=== PATIENT | male | born 1950 | race Caucasian/White ===

== ENCOUNTER 2020-07-11 08:00 | Inpatient (IN) ==
--- NOTE | 2020-07-11 08:17 | Emergency Department Note ---
Impression & Plan Atrial fibrillation with RVR ED Provider Note NAME: GUILLERMO PARR AGE: 69 SEX: M : 1950 ARRIVES VIA: Walk-In INFORMANT: Patient, ED PROVIDER(S): Esequiel Trujillo MD Chief Complaint: Irregular heartbeat HPI: Patient does presents from the surgery center after completing an EKG prior to undergoing cataract surgery where was noted as the patient was in A. fib with RVR. The patient denies any alcohol tobacco or drug use. The patient denies any stimulant or supplement use. The patient denies any prior history of heart or lung disease. Patient may have a history of untreated hyperlipidemia. Patient does take baby aspirin preventatively. No known medical problems. Patient denies any recent stress. Patient states that his appetite is appropriate no vomiting or diarrhea. Patient denies chest pain shortness of breath fatigue or poor appetite. The patient denies any infectious symptoms. ROS: See HPI for pertinent positives and negatives. A total of 10 systems were reviewed and otherwise negative. Past medical history: See below Surgical history: See below Social history: See below Physical Exam: GENERAL: Wearing a mask. NAD, non-toxic. EYE EXAM: Normal conjunctiva. PERRL, no anisocoria and EOM's grossly intact w/o pain. NECK: Supple, no nuchal rigidity, no adenopathy, non-tender. No signs of meningismus. LUNGS: Clear to auscultation. Normal chest wall mechanics. HEART: Irregularly irregular, no MRG. ABDOMEN: Abdomen soft, non-tender, normo-active bowel sounds, no masses, no rebound or guarding. BACK: No CVA TTP. SKIN: No rashes and no bruising. UPPER EXTREMITIES: Upper extremities are grossly normal. LOWER EXTREMITIES: Grossly normal, no edema. NEURO EXAM: A&O x3, cranial nerves II-XII grossly intact, normal speech, moves all 4 extremities on command w/o issue. Differential diagnoses: Premature contractions, electrolyte abnormality, cardiac dysrhythmia, thyroid dysfunction, pulmonary embolism, infection, gastrointestinal, as well as other pathologies. Course: Patient was seen and evaluated the bedside. Full history physical exam was performed. EKG: Indication: Irregular heartbeat A. fib with RVR, rate of 111, normal QRS and QT, PVC noted. Imaging Studies: Radiology results as stated below per my review in the radiologist's interpretation: XR chest 1V portable HISTORY: 69 years-old Male a fib acute atypical chest pain with atrial fibrillation COMPARISON: None TECHNIQUE: Portable AP view of the chest FINDINGS: Cardiac silhouette is moderately enlarged. No pneumothorax, pleural effusion, airspace consolidation or overt pulmonary edema. Degenerative changes of the shoulders and spine. IMPRESSION: Cardiomegaly without acute process. ACT 112: Negative or not required by law. The above report was generated using voice recognition software. It may contain grammatical, syntax or spelling errors. Electronically signed by: Jas Kramer M.D. 07/11/2020 8:39 AM Dictated: 07/11/20837Transcribed: 07/11/20837 Cardiac monitoring: An order was placed for continuous cardiac monitoring. The monitor shows a rate of 95 with irregularly irregular rhythm. MDM: Patient did present with concern for A. fib with RVR referred as an outpatient. [id number] likely 2. Heparin anticoagulation was started. I did speak with the on-call hospitalist and the patient was admitted to the medicine service. Blood work fairly unremarkable chest x-ray with cardiomegaly and mildly low phosphorus which was ordered for replacement. The patient was admitted to [facility] under Dr. Ansari. Critical Care: I have personally spent 47 minutes of critical care time in direct management of this patient. This includes bedside care, interpretation of diagnostic studies, and testing, discussion with consultants, patient, and family members, and other require inpatient management activities. This 47 minutes is in excess of all separately billable procedures. Past Med/Surg History Medical History History of high cholesterol History of skin cancer & REMOVED Obesity Surgical History History of colonoscopy History of surgery FINGER SURGERY , LEFT Family History Brother Family history of diabetes mellitus Sister Family history of diabetes mellitus Mother Family history of diabetes mellitus Social History Smoking Status: Never smoker Second Hand Exposure: No; Do You Dip or Chew Tobacco: No; Tobacco Cessation Education Requested by Patient: No Hx Alcohol Use: No Hx Substance Use: No Preferred Language: Italian Communication Ability: Effective Jig Bore Operator Required: No Beliefs That Will Affect Care: None Current Living Situation: Alone Other Information That Helps Us Care for You: No Feels Safe at Home: Yes Safety Concerns: Feels Safe At This Time Assistive Devices: Glasses Allergies Allergies Allergy/AdvReac Type Severity Reaction Status Date / Time ANTIBIOTIC Allergy Unknown PT NOT Uncoded 07/11/20 07:12 SURE NAME OF - RASH bee stings Allergy Unknown TROUBLE Uncoded 07/11/20 07:12 BREATHING, SWELLING Home Meds Home Medications Medication Instructions Recorded Confirmed aspirin [Aspir-81] 81 mg PO DAILY 06/29/20 07/11/20 Results & Data (ED) Vital Signs Vital Signs - 24 hr 07/11/20 08:02 07/11/20 08:13 07/11/20 08:16 Temperature 36.6 C Temperature Source Oral Pulse Rate 90 101 H 105 H Pulse Rate from SpO2 Sensor 97 H 101 H Respiratory Rate 18 19 14 Respiratory Effort / Characteristics Non-Labored Spontaneous Respiratory Depth Normal Respiratory Pattern Regular Blood Pressure 152/89 H 126/106 H Blood Pressure Mean 110 112 Blood Pressure Position Sitting Pulse Oximetry 98 97 98 Oxygen Delivery Method Room Air Sepsis Recent Fever Within 48 Hours No Sepsis New/Unexplained Change in Mental Status N/A Sepsis Action Taken by Nursing No Action Required 07/11/20 08:20 07/11/20 08:27 07/11/20 08:30 Temperature Temperature Source Pulse Rate 97 H 112 H 93 H Pulse Rate from SpO2 Sensor 102 H 106 H 100 H Respiratory Rate 15 14 14 Respiratory Effort / Characteristics Respiratory Depth Respiratory Pattern Blood Pressure 117/76 120/74 Blood Pressure Mean 89 89 Blood Pressure Position Pulse Oximetry 96 97 96 Oxygen Delivery Method Sepsis Recent Fever Within 48 Hours Sepsis New/Unexplained Change in Mental Status Sepsis Action Taken by Nursing 07/11/20 08:33 07/11/20 08:40 07/11/20 09:00 Temperature Temperature Source Pulse Rate 106 H 98 H Pulse Rate from SpO2 Sensor 113 H Respiratory Rate 21 18 Respiratory Effort / Characteristics Respiratory Depth Respiratory Pattern Blood Pressure Blood Pressure Mean Blood Pressure Position Pulse Oximetry 95 96 Oxygen Delivery Method Room Air Sepsis Recent Fever Within 48 Hours Sepsis New/Unexplained Change in Mental Status Sepsis Action Taken by Nursing 07/11/20 09:02 07/11/20 09:20 07/11/20 09:30 Temperature Temperature Source Pulse Rate 98 H 90 95 H Pulse Rate from SpO2 Sensor 94 H Respiratory Rate 20 17 20 Respiratory Effort / Characteristics Respiratory Depth Respiratory Pattern Blood Pressure 117/67 140/91 Blood Pressure Mean 83 107 Blood Pressure Position Pulse Oximetry 96 Oxygen Delivery Method Sepsis Recent Fever Within 48 Hours Sepsis New/Unexplained Change in Mental Status Sepsis Action Taken by Nursing 07/11/20 09:40 07/11/20 10:00 07/11/20 10:20 Temperature Temperature Source Pulse Rate 97 H 91 H 109 H Pulse Rate from SpO2 Sensor 99 H 94 H Respiratory Rate 24 20 16 Respiratory Effort / Characteristics Respiratory Depth Respiratory Pattern Blood Pressure 147/104 H Blood Pressure Mean 118 Blood Pressure Position Pulse Oximetry 96 95 Oxygen Delivery Method Sepsis Recent Fever Within 48 Hours Sepsis New/Unexplained Change in Mental Status Sepsis Action Taken by Nursing 07/11/20 10:31 07/11/20 10:32 07/11/20 10:40 Temperature Temperature Source Pulse Rate 105 H 99 H 100 H Pulse Rate from SpO2 Sensor 102 H 92 H 93 H Respiratory Rate 21 17 15 Respiratory Effort / Characteristics Respiratory Depth Respiratory Pattern Blood Pressure 150/100 H Blood Pressure Mean 116 Blood Pressure Position Pulse Oximetry 96 96 93 Oxygen Delivery Method Sepsis Recent Fever Within 48 Hours Sepsis New/Unexplained Change in Mental Status Sepsis Action Taken by Nursing 07/11/20 10:57 07/11/20 11:00 07/11/20 11:01 Temperature Temperature Source Pulse Rate 77 70 70 Pulse Rate from SpO2 Sensor 79 79 71 Respiratory Rate 21 18 15 Respiratory Effort / Characteristics Respiratory Depth Respiratory Pattern Blood Pressure 142/77 H 133/79 Blood Pressure Mean 98 97 Blood Pressure Position Pulse Oximetry 96 91 95 Oxygen Delivery Method Sepsis Recent Fever Within 48 Hours Sepsis New/Unexplained Change in Mental Status Sepsis Action Taken by Nursing 07/11/20 11:20 07/11/20 11:31 07/11/20 11:32 Temperature Temperature Source Pulse Rate 73 70 74 Pulse Rate from SpO2 Sensor 76 72 72 Respiratory Rate 22 19 22 Respiratory Effort / Characteristics Respiratory Depth Respiratory Pattern Blood Pressure 128/81 Blood Pressure Mean 96 Blood Pressure Position Pulse Oximetry 94 95 93 Oxygen Delivery Method Sepsis Recent Fever Within 48 Hours Sepsis New/Unexplained Change in Mental Status Sepsis Action Taken by Nursing 07/11/20 11:40 Temperature Temperature Source Pulse Rate 74 Pulse Rate from SpO2 Sensor 75 Respiratory Rate 16 Respiratory Effort / Characteristics Respiratory Depth Respiratory Pattern Blood Pressure Blood Pressure Mean Blood Pressure Position Pulse Oximetry 95 Oxygen Delivery Method Sepsis Recent Fever Within 48 Hours Sepsis New/Unexplained Change in Mental Status Sepsis Action Taken by [facility] Medications Current Medication List: was personally reviewed by me Laboratory Data Attestation: I reviewed the patient's lab results. Result diagrams: 07/12/20 05:46 07/12/20 05:46 Lab Results 07/11/20 07/11/20 07/11/20 Range/Units 08:27 08:27 08:27 WBC 7.50 (4.8-10.8) K/uL RBC 5.00 (4.7-6.1) M/uL Hgb 15.1 (14.0-18.0) g/dL Hct 44.5 (42-52) % MCV 89.0 (80-100) fL MCH 30.2 (25-34) pg MCHC 33.9 (32-36) g/dL RDW Std Deviation 46.8 H (36.4-46.3) fL RDW Coeff of [place] 14.4 (11.5-14.5) % Plt Count 286 (130-400) K/uL MPV 9.8 (7.4-10.4) fL Immature Gran % (Auto) 0.1 % Neut % (Auto) 62.7 % Lymph % (Auto) 22.4 % [place] % (Auto) 12.0 % Eos % (Auto) 2.0 % Baso % (Auto) 0.8 % Neut # (Auto) 4.70 (1.4-6.5) K/uL Lymph # (Auto) 1.68 (1.2-3.4) K/uL [place] # (Auto) 0.90 H (0.11-0.59) K/uL Eos # (Auto) 0.15 (0-0.5) K/uL Baso # (Auto) 0.06 (0-0.2) K/uL Immature Gran # (Auto) 0.01 (0.00-0.02) K/uL PT 10.5 (9.0-12.0) Seconds INR 1.0 (0.9-1.1) APTT 25.8 (21.0-31.0) Seconds PTT Ratio 1.0 Sodium 139 (136-145) mmol/L Potassium 4.0 (3.5-5.1) mmol/L Chloride 106 (98-107) mmol/L Carbon Dioxide 28 (21-32) mmol/L Anion Gap 6.0 (3-11) BUN 17 (7-18) mg/dl Creatinine 1.12 (0.6-1.4) mg/dl Est Cr Clr Drug Dosing 80.4 ml/min Est GFR ( Amer) 77.8 Est GFR (Non-Af Amer) 67.1 BUN/Creatinine Ratio 15.1 (10-20) Glucose 109 H (70-99) mg/dl Calcium 9.7 (8.5-10.1) mg/dl Phosphorus 2.1 L (2.5-4.9) mg/dl Magnesium 2.0 (1.8-2.4) mg/dl Total Bilirubin 0.6 (0.2-1) mg/dl AST 17 (15-37) U/L ALT 26 (12-78) U/L Alkaline Phosphatase 70 (45-117) U/L Total Protein 8.4 H (6.4-8.2) gm/dl Albumin 3.7 (3.4-5.0) gm/dl Globulin 4.6 H (2.5-4.0) gm/dl Albumin/Globulin Ratio 0.8 L (0.9-2) TSH 2.610 (0.300-4.500) uIu/ml COVID-19 Eval Order SARS-CoV-2, RNA, NAAT (NEGATIVE) 07/11/20 07/11/20 Range/Units 10:45 10:45 WBC (4.8-10.8) K/uL RBC (4.7-6.1) M/uL Hgb (14.0-18.0) g/dL Hct (42-52) % MCV (80-100) fL MCH (25-34) pg MCHC (32-36) g/dL RDW Std Deviation (36.4-46.3) fL RDW Coeff of [place] (11.5-14.5) % Plt Count (130-400) K/uL MPV (7.4-10.4) fL Immature Gran % (Auto) % Neut % (Auto) % Lymph % (Auto) % [place] % (Auto) % Eos % (Auto) % Baso % (Auto) % Neut # (Auto) (1.4-6.5) K/uL Lymph # (Auto) (1.2-3.4) K/uL [place] # (Auto) (0.11-0.59) K/uL Eos # (Auto) (0-0.5) K/uL Baso # (Auto) (0-0.2) K/uL Immature Gran # (Auto) (0.00-0.02) K/uL PT (9.0-12.0) Seconds INR (0.9-1.1) APTT (21.0-31.0) Seconds PTT Ratio Sodium (136-145) mmol/L Potassium (3.5-5.1) mmol/L Chloride (98-107) mmol/L Carbon Dioxide (21-32) mmol/L Anion Gap (3-11) BUN (7-18) mg/dl Creatinine (0.6-1.4) mg/dl Est Cr Clr Drug Dosing ml/min Est GFR ( Amer) Est GFR (Non-Af Amer) BUN/Creatinine Ratio (10-20) Glucose (70-99) mg/dl Calcium (8.5-10.1) mg/dl Phosphorus (2.5-4.9) mg/dl Magnesium (1.8-2.4) mg/dl Total Bilirubin (0.2-1) mg/dl AST (15-37) U/L ALT (12-78) U/L Alkaline Phosphatase (45-117) U/L Total Protein (6.4-8.2) gm/dl Albumin (3.4-5.0) gm/dl Globulin (2.5-4.0) gm/dl Albumin/Globulin Ratio (0.9-2) TSH (0.300-4.500) uIu/ml COVID-19 Eval Order Covid19 [facility]Now [facility] SARS-CoV-2, RNA, NAAT NEGATIVE (NEGATIVE) Administered Medications Heparin Sodium/Dextrose (Heparin Sodium/Dextrose) 25,000 units in 500 mls @ 32 mls/hr IV .[id number] [facility]; Protocol Stop: 08/10/20 10:14 Last Admin: 07/12/20 01:42 Dose: 1,600 units/hr, 32 mls/hr Documented by: [id number] Cosigned by: [id number] Titration: 07/12/20 01:42 Dose: 1,600 units/hr, 32 mls/hr Documented by: [id number] Cosigned by: [id number] Admin: 07/12/20 00:22 Dose: 1,600 units/hr, 32 mls/hr Documented by: [id number] Cosigned by: [id number] Admin: 07/11/20 12:45 Dose: Not Given Documented by: [id number] Metoprolol Tartrate (Metoprolol Tartrate 25 Mg Tab) 25 mg PO BID LIV Stop: 08/10/20 20:59 Last Admin: 07/11/20 21:33 Dose: 25 mg Documented by: [id number] Discontinued Medications Al Hydrox/Mg Hydrox/Simethicone (Aluminum/Magnesium/Simeth (Maalox Max) 30 Ml Udc) 30 ml PO NOW STA Stop: 07/12/20 00:23 Last Admin: 07/12/20 00:30 Dose: 30 ml Documented by: [id number] Aspirin (Aspirin 81 Mg Ectab) 81 mg PO ONE ONE Stop: 07/11/20 11:01 Last Admin: 07/11/20 11:06 Dose: 81 mg Documented by: [id number] Diltiazem HCl (Diltiazem Hcl 5 Mg/Ml 5 Ml Vial) 15 mg IV NOW STA Stop: 07/11/20 09:41 Last Admin: 07/11/20 10:31 Dose: 15 mg Documented by: [id number] Cosigned by: [id number] Heparin Sodium (Porcine) (Heparin Sod (Porcine) 1000 Unit/Ml 10 Ml Vial) Confirm Administered Dose 10,000 units .ROUTE .STK-MED ONE Stop: 07/11/20 10:17 Last Admin: 07/11/20 10:30 Dose: 5,000 units Documented by: [id number] Cosigned by: [id number] Heparin Sodium/Dextrose (Heparin Iv Standard *No* Bolus) 1 ea IV ONE ONE; Protocol Stop: 07/11/20 09:37 Last Admin: 07/11/20 10:26 Dose: Not Given Documented by: [id number] Heparin Sodium/Dextrose (Heparin Iv Standard With Bolus) 1 ea IV Q15M LIV; Protocol Stop: 07/11/20 10:36 Last Admin: 07/11/20 10:32 Dose: Not Given Documented by: [id number] Sodium Chloride (Nss) 500 mls @ 999 mls/hr IV .Q31M LIV Stop: 07/11/20 09:00 Last Infusion: 07/11/20 09:23 Dose: 0 mls/hr Documented by: [id number] Admin: 07/11/20 08:39 Dose: 999 mls/hr Documented by: [id number] Heparin Sodium/Dextrose (Heparin Sodium/Dextrose) 25,000 units in 500 mls @ 0.02 mls/hr IV .Q24H LIV; Protocol Stop: 08/10/20 09:44 Last Titration: 07/12/20 00:25 Dose: 0 units/hr, 0 mls/hr Documented by: [id number] Cosigned by: [id number] Titration: 07/11/20 14:34 Dose: 1,600 units/hr, 32 mls/hr Documented by: [id number] Cosigned by: [id number] Admin: 07/11/20 10:23 Dose: 1,600 units/hr, 32 mls/hr Documented by: [id number] Cosigned by: [id number] Diltiazem HCl 125 mg/ Dextrose 125 mls @ 5 mls/hr IV .Q24H LIV; Protocol Stop: 08/10/20 09:59 Last Titration: 07/11/20 13:30 Dose: 0 mg/hr, 0 mls/hr Documented by: [id number] Cosigned by: [id number] Admin: 07/11/20 10:33 Dose: 5 mg/hr, 5 mls/hr Documented by: [id number] Cosigned by: [id number] Metoprolol Tartrate (Metoprolol Tartrate 25 Mg Tab) 25 mg PO ONE ONE Stop: 07/11/20 11:01 Last Admin: 07/11/20 11:05 Dose: 25 mg Documented by: [id number] Potassium Phosphate (Pot Phosphate Monobasic W/ Sod Tab) 2 tab PO NOW STA Stop: 07/11/20 09:31 Last Admin: 07/11/20 10:41 Dose: 2 tab Documented by: [id number] Discharge Plan Visit Data Chief Complaint: Abnormal Labs/Diagnostic Testing Stated Complaint: ABNORMAL LABS ED Provider: Esequiel Trujillo Discharge Problem: Atrial fibrillation with RVR Patient Disposition: Admitted As Inpatient Discharge Instructions Interventions: ED Discharge Assessment Last Done: 07/11/20 13:08
[2020-07-11] MEDS ORDERED: SODIUM CHLORIDE 0.9% 500 ML IV SCH (08:30)
[2020-07-11 08:37] LABS: Basophils # (auto) 0.06 K/uL (0-0.2); Basophils % (auto) 0.8 %; Eosinophils # (auto) 0.15 K/uL (0-0.5); Hematocrit (blood only) 44.5 % (42-52); Hemoglobin 15.1 g/dL (14.0-18.0); Immature Granulocytes # (auto) 0.01 K/uL (0.00-0.02); Immature Granulocytes % (auto) 0.1 %; Lymphocytes # (auto) 1.68 K/uL (1.2-3.4); Lymphocytes % (auto) 22.4 %; Mean Corpuscular Hemoglobin 30.2 pg (25-34); Mean Corpuscular Hgb Conc 33.9 g/dL (32-36); Mean Platelet Volume 9.8 fL (7.4-10.4); Neutrophils % (auto) 62.7 %; Platelet Count 286 K/uL (130-400); RDW Coefficient of Variation 14.4 % (11.5-14.5); RDW Standard Deviation 46.8 fL (36.4-46.3)
--- NOTE | 2020-07-11 08:41 | XRay Report ---
XR chest 1V portable HISTORY: 69 years-old Male a fib acute atypical chest pain with atrial fibrillation COMPARISON: None TECHNIQUE: Portable AP view of the chest FINDINGS: Cardiac silhouette is moderately enlarged. No pneumothorax, pleural effusion, airspace consolidation or overt pulmonary edema. Degenerative changes of the shoulders and spine. IMPRESSION: Cardiomegaly without acute process. ACT 112: Negative or not required by law. The above report was generated using voice recognition software. It may contain grammatical, syntax o r spelling errors. Electronically signed by: Jas Kramer M.D. 07/11/2020 8:39 AM
[2020-07-11 08:53] LABS: Albumin Level 3.7 gm/dl (3.4-5.0); BUN Creatinine Ratio 15.1 (10-20); Calcium 9.7 mg/dl (8.5-10.1); Creatinine Clr Calc Pharmacy 80.4 ml/min; Est GFR (African American) 77.8; Est GFR (Non-African American) 67.1
[2020-07-11 09:04] LABS: Albumin Globulin Ratio 0.8 (0.9-2); Bilirubin,Total 0.6 mg/dl (0.2-1); Globulin 4.6 gm/dl (2.5-4.0); Phosphorus 2.1 mg/dl (2.5-4.9); Thyroid Stimulating Hormone 2.61 uIu/ml (0.300-4.500); Total Protein 8.4 gm/dl (6.4-8.2)
[2020-07-11] MEDS ORDERED: POT PHOSPHATE MONOBASIC W/ SOD TAB PO STA (09:30)
[2020-07-11] MEDS ORDERED: Heparin IV Standard *NO* Bolus IV ONE (09:36)
[2020-07-11] MEDS ORDERED: dilTIAZem HCl 5 MG/ML 5 ML VIAL IV STA (09:40)
[2020-07-11] MEDS ORDERED: STAT IV Infusion **Titration per Protocol STA (09:40)
[2020-07-11] MEDS ORDERED: HEPARIN SODIUM/DEXTROSE 25,000 UNITS/500 ML BAG IV SCH (09:45)
--- NOTE | 2020-07-11 09:52 | History & Physical Report ---
Date of Service July 11, 2020 Assessment & Plan (1) Atrial fibrillation with RVR: (2) Hyperlipidemia: (3) Obesity: Cardizem gtt c Bolus, IV Heparin c Bolus, Cardiac eval, continue ASA. Monitor daily labs and check Thyroid, COVID was negative. Labs Checked ROS-No Headache, No Visual Changes, No Nausea, No Vomiting, No Fever, No Chills, No Neck Pain or Stiffness, No Chest Pain, No Palpitations, No SOB, No MANCIA, No Cough, No Sputum, No Wheezing, No Abdominal Pain, No Diarrhea, No Hematemesis, No Hemoptysis, No Unexpected Weight Loss, No Flank pain, No Melena, No Hematochezia, No Frequency, No Urgency, No Burning, No Hematuria, No Rashes, No Diaphoresis. Appetite is Normal Physical Exam Gen-AAO x 3, NAD, Afebrile, Obese Head-NCAT, EOMI, PERRLA, Anicteric Sclera, No Posterior Pharyngeal Erythema Neck-Supple, No JVD, No Thyromegaly, No Masses, No LAD, No Bruits Lungs-Clear to Auscultation Bilaterally, No Rales, No Rhonchi, No Wheezing, No Crepitus Chest-Irreg/Irres, Tachy in low teens, No S4, +S1, +S2, No S3, No Murmurs, No Rubs, No Gallops, +Ectopy Abdomen-Soft, Bowel Sounds Present, Non Tender, Non Distended, No Hepatomegaly, No Splenomegaly, No Palpable Masses, No Rebound, No Rigidity, No Guarding Musculoskeletal-Full Range of Motion Bilaterally, No CVAT Extremities-No Cyanosis, No Clubbing, No Edema Nuero-Cranial Nerves II-XII grossly intact, Motor WNL, DTRs WNL, Strength WNL, Non Focal Psych-Normal Mood History of Present Illness 69 year old male c PMH of Obesity and HLD was at the surgery center awaiting cataract surgery when a pre-procedure EKG was done. He was found to be in AFIB c RVR and was sent to [facility] for an evaluation and Cardiac eval. He denies any symptoms, felt fine. Chief Complaint: Rapid Heart Rate Primary Care Provider: Munira Deleon MD 69 year old male c PMH of Obesity and HLD was at the surgery center awaiting cataract surgery when a pre-procedure EKG was done. He was found to be in AFIB c RVR and was sent to [facility] for an evaluation and Cardiac eval. Allergies Allergy/AdvReac Type Severity Reaction Status Date / Time ANTIBIOTIC Allergy Unknown PT NOT Uncoded 07/11/20 07:12 SURE NAME OF - RASH bee stings Allergy Unknown TROUBLE Uncoded 07/11/20 07:12 BREATHING, SWELLING Home Medications Medication Instructions Recorded Confirmed Type aspirin [Aspir-81] 81 mg PO DAILY 06/29/20 07/11/20 History Past Med/Surg History Medical History History of high cholesterol History of skin cancer & REMOVED Obesity Surgical History History of colonoscopy History of surgery FINGER SURGERY , LEFT Family History Brother Family history of diabetes mellitus Sister Family history of diabetes mellitus Mother Family history of diabetes mellitus Social History Smoking Status: Never smoker Hx Alcohol Use: No Preferred Language: Persian Communication Ability: Effective Multicultural Manager Required: No Beliefs That Will Affect Care: None Current Living Situation: Alone Feels Safe at Home: Yes Assistive Devices: Glasses Results & Data Results & Data ([facility]) Vital Signs (Past 12 Hours) Vital Signs Temp Pulse Resp BP Pulse Ox 07/11/20 08:40 106 H 21 96 07/11/20 08:33 95 07/11/20 08:30 93 H 14 120/74 96 07/11/20 08:27 112 H 14 117/76 97 07/11/20 08:20 97 H 15 96 07/11/20 08:16 105 H 14 98 07/11/20 08:13 101 H 19 126/106 H 97 07/11/20 08:02 36.6 C 90 18 152/89 H 98 Allergies ANTIBIOTIC Allergy (Unknown, Uncoded 07/11/20 07:12) PT NOT SURE NAME OF - RASH bee stings Allergy (Unknown, Uncoded 07/11/20 07:12) TROUBLE BREATHING, SWELLING Height/Weight/Isolation Height 5 ft 10 in Weight 115.7 kg Chemistry 07/11/20 08:27 Sodium 139 Potassium 4.0 Chloride 106 Carbon Dioxide 28 Anion Gap 6.0 BUN 17 Creatinine 1.12 Glucose 109 H Code Status & VTE Plan VTE Prophylaxis Plan VTE Prophylaxis will be ordered: Yes
[2020-07-11] MEDS ORDERED: dilTIAZem HCL 125 MG in DEXTROSE 5% 100 ML IV SCH (10:00)
[2020-07-11] MEDS ORDERED: HEPARIN SOD (PORCINE) 1000 UNIT/ML 10 ML VIAL ONE (10:16)
[2020-07-11 10:54] LABS: Partial Thromboplastin Time 25.8 Seconds (21.0-31.0); Prothrombin Time 10.5 Seconds (9.0-12.0)
[2020-07-11] MEDS ORDERED: ASPIRIN 81 MG ECTAB PO ONE (11:00)
[2020-07-11] MEDS ORDERED: METOPROLOL TARTRATE 25 MG TAB PO ONE (11:00)
[2020-07-11] MEDS: HEPARIN SODIUM/DEXTROSE 25,000 UNITS/500 ML BAG IV SCH (12:45)
[2020-07-11 13:57] LABS: INR 1.1 (0.9-1.1); Prothrombin Time 10.7 Seconds (9.0-12.0)
--- NOTE | 2020-07-11 16:07 | Cardiology Consultation ---
Date of Consultation July 11, 2020 Assessment & Plan (1) Atrial fibrillation with RVR: (2) Elevated blood pressure reading with diagnosis of hypertension: (3) Obesity: 69-year-old patient admitted with atrial fibrillation with rapid ventricular response. [id number] score = 1-2 for age and ? HTN. Elevated blood pressure recorded initially, however, improved with intravenous Cardizem infusion and oral metoprolol. Resting 2D transthoracic echocardiogram pending at this time. Continue rate control strategy with oral metoprolol 25 mg twice daily. IV heparin will be continued overnight with plans for transition to oral anticoagulation in a.m. Recommend Eliquis 5 mg twice daily. Baseline lab studies and TSH within normal limits. Further recommendations pending clinical course and review of 2D transthoracic echocardiogram. Thank you for allow me to participate in the care of your patient. History of Present Illness Reason for Consultation: Atrial fibrillation Requesting Physician: Dr. Ansari Attending Physician: Nba Ansari DO History of Present Illness 69-year-old patient presented to outpatient surgical center today for cataract surgery. Tachycardic on presentation without symptoms. ECG confirming atrial fibrillation with rapid ventricular response. He was referred to the emergency department for further evaluation and treatment. He is asymptomatic. Denies chest pain, palpitations, unusual shortness of breath, or decline in functional capacity. No recent excessive alcohol or caffeine intake. Denies personal history of coronary disease, congestive heart failure, diabetes, hypertension, rheumatic fever as a child, or cerebrovascular accident. Currently resting comfortably. Initially treated with intravenous Cardizem on presentation. Heart rate has improved. IV Cardizem discontinued. He is received 1 dose of oral metoprolol tartrate. Scheduled for second dose this evening. IV heparin infusing. Allergies Allergy/AdvReac Type Severity Reaction Status Date / Time ANTIBIOTIC Allergy Unknown PT NOT Uncoded 07/11/20 07:12 SURE NAME OF - RASH bee stings Allergy Unknown TROUBLE Uncoded 07/11/20 07:12 BREATHING, SWELLING Home Medications Medication Instructions Recorded Confirmed Type aspirin [Aspir-81] 81 mg PO DAILY 06/29/20 07/11/20 History apixaban [Eliquis] 5 mg PO BID #60 tab 07/12/20 Rx metoprolol tartrate 25 mg PO BID #60 tab 07/12/20 Rx Patient History Medical History History of high cholesterol History of skin cancer & REMOVED Obesity Surgical History History of colonoscopy History of surgery FINGER SURGERY , LEFT Family History Brother Family history of diabetes mellitus Sister Family history of diabetes mellitus Mother Family history of diabetes mellitus Social History Smoking Status: Never smoker Second Hand Exposure: No; Do You Dip or Chew Tobacco: No; Tobacco Cessation Education Requested by Patient: No Hx Alcohol Use: No Hx Substance Use: No Preferred Language: Sinhala Communication Ability: Effective Credit Review Manager Required: No Beliefs That Will Affect Care: None Current Living Situation: Alone Other Information That Helps Us Care for You: No Feels Safe at Home: Yes Safety Concerns: Feels Safe At This Time Assistive Devices: Glasses Review of Systems Review of Systems: All systems reviewed & are unremarkable except as noted in Subjective Physical Exam Constitutional: well nourished and + obese; no acute distress Eyes: PERRL, conjunctivae normal, anicteric sclerae Respiratory: normal respiratory effort, lungs clear to auscultation Auscultation: no crackles, no rales, no rhonchi and no wheezes Cardiovascular: Rate/Rhythm: + irregularly irregular Heart Sounds: normal S1 and normal S2; no murmur Vessels: radial pulses present; no JVD and no carotid bruit Extremities: no edema Gastrointestinal (Abdomen): Inspection/Auscultation: normal bowel sounds; abdomen not distended Percussion/Palpation: abdomen soft; abdomen nontender, no guarding and abdomen not rigid Skin: no rashes, warm and dry Psychiatric: A+Ox3, euthymic affect Results & Data ([facility]) Vital Signs (Past 12 Hours) Vital Signs Temp Pulse Pulse Resp BP BP Pulse Ox 07/11/20 14:57 37.0 C 76 21 102/66 95 07/11/20 13:08 69 18 119/85 95 07/11/20 13:00 73 07/11/20 12:57 75 07/11/20 12:55 36.5 C 72 18 117/77 97 07/11/20 12:31 63 18 129/73 95 07/11/20 12:20 68 17 07/11/20 12:01 78 20 119/85 07/11/20 12:00 72 9 L 90 07/11/20 11:40 74 16 95 07/11/20 11:32 74 22 93 07/11/20 11:31 70 19 128/81 95 07/11/20 11:20 73 22 94 07/11/20 11:01 70 15 133/79 95 07/11/20 11:00 70 18 91 07/11/20 10:57 77 21 142/77 H 96 07/11/20 10:40 100 H 15 93 07/11/20 10:32 99 H 17 96 07/11/20 10:31 105 H 21 150/100 H 96 07/11/20 10:20 109 H 16 07/11/20 10:00 91 H 20 147/104 H 95 07/11/20 09:40 97 H 24 96 07/11/20 09:30 95 H 20 140/91 96 07/11/20 09:20 90 17 07/11/20 09:02 98 H 20 117/67 07/11/20 09:00 98 H 18 07/11/20 08:40 106 H 21 96 07/11/20 08:33 95 07/11/20 08:30 93 H 14 120/74 96 07/11/20 08:27 112 H 14 117/76 97 07/11/20 08:20 97 H 15 96 07/11/20 08:16 105 H 14 98 07/11/20 08:13 101 H 19 126/106 H 97 07/11/20 08:02 36.6 C 90 18 152/89 H 98
--- NOTE | 2020-07-11 16:09 | Electrocardiogram Report ---
Test Reason : Blood Pressure : / mmHG Vent. Rate : 111 BPM Atrial Rate : 102 BPM P-R Int : 000 ms QRS Dur : 092 ms QT Int : 348 ms P-R-T Axes : 000 012 013 degrees QTc Int : 473 ms Atrial fibrillation with rapid ventricular response with premature ventricular or aberrantly conducte d complexes Nonspecific T wave abnormality Abnormal ECG When compared with ECG of 11-JUL-2020 07:27, (unconfirmed) Nonspecific T wave abnormality, improved in Inferior leads Confirmed by Gigi Amaya ([id number]) on 07/11/2020 4:09:38 PM Referred By: ED Confirmed By:Gigi Amaya
[2020-07-11 17:04] LABS: Partial Thromboplastin Time 53.3 Seconds (21.0-31.0)
[2020-07-11] MEDS: METOPROLOL TARTRATE 25 MG TAB PO SCH (21:33)
[2020-07-12] MEDS ORDERED: ALUMINUM/MAGNESIUM/SIMETH (MAALOX MAX) 30 ML UDC PO STA (00:22)
[2020-07-12] MEDS: HEPARIN SODIUM/DEXTROSE 25,000 UNITS/500 ML BAG IV SCH ×2 (00:22→01:42)
[2020-07-12 06:48] LABS: Partial Thromboplastin Ratio 2.1; Prothrombin Time 10.5 Seconds (9.0-12.0)
[2020-07-12 06:50] LABS: Partial Thromboplastin Time 55.2 Seconds (21.0-31.0)
[2020-07-12 06:54] LABS: BUN Creatinine Ratio 17.1 (10-20); Calcium 8.4 mg/dl (8.5-10.1); Creatinine Clr Calc Pharmacy 83.5 ml/min; Est GFR (African American) 81.3; Est GFR (Non-African American) 70.2; Hematocrit (blood only) 42.6 % (42-52); Hemoglobin 14.3 g/dL (14.0-18.0); Magnesium 2.3 mg/dl (1.8-2.4); Mean Corpuscular Hemoglobin 29.9 pg (25-34); Mean Corpuscular Hgb Conc 33.6 g/dL (32-36); Mean Corpuscular Volume 89.1 fL (80-100); Mean Platelet Volume 10.5 fL (7.4-10.4); Phosphorus 2.5 mg/dl (2.5-4.9); Platelet Count 279 K/uL (130-400); Potassium 3.9 mmol/L (3.5-5.1); RDW Coefficient of Variation 14.7 % (11.5-14.5); RDW Standard Deviation 48.2 fL (36.4-46.3); Red Blood Count 4.78 M/uL (4.7-6.1); White Blood Count 7.08 K/uL (4.8-10.8)
[2020-07-12] MEDS: METOPROLOL TARTRATE 25 MG TAB PO SCH (08:21)
[2020-07-12] MEDS ORDERED: ASPIRIN 81 MG ECTAB PO SCH (09:00)
--- NOTE | 2020-07-12 09:50 | Discharge Summary ---
Date of Service July 12, 2020 Admission HPI Per Admitting Provider 69 year old male c PMH of Obesity and HLD was at the surgery center awaiting cataract surgery when a pre-procedure EKG was done. He was found to be in AFIB c RVR and was sent to [facility] ER for an evaluation and Cardiac eval. Admission Exam Per Admitting Provider Physical Exam Gen-AAO x 3, NAD, Afebrile, Obese Head-NCAT, EOMI, PERRLA, Anicteric Sclera, No Posterior Pharyngeal Erythema Neck-Supple, No JVD, No Thyromegaly, No Masses, No LAD, No Bruits Lungs-Clear to Auscultation Bilaterally, No Rales, No Rhonchi, No Wheezing, No Crepitus Chest-Irreg/Irres, Tachy in low teens, No S4, +S1, +S2, No S3, No Murmurs, No Rubs, No Gallops, +Ectopy Abdomen-Soft, Bowel Sounds Present, Non Tender, Non Distended, No Hepatomegaly, No Splenomegaly, No Palpable Masses, No Rebound, No Rigidity, No Guarding Musculoskeletal-Full Range of Motion Bilaterally, No CVAT Extremities-No Cyanosis, No Clubbing, No Edema Nuero-Cranial Nerves II-XII grossly intact, Motor WNL, DTRs WNL, Strength WNL, Non Focal Psych-Normal Mood Principal Diagnosis (1) Atrial fibrillation with RVR: (2) Hyperlipidemia: (3) Obesity: Discharge Exam See below Discharge Data Allergies Allergy/AdvReac Type Severity Reaction Status Date / Time ANTIBIOTIC Allergy Unknown PT NOT Uncoded 07/11/20 07:12 SURE NAME OF - RASH bee stings Allergy Unknown TROUBLE Uncoded 07/11/20 07:12 BREATHING, SWELLING Consultations 07/11/20 09:35 ED Decision to Admit Stat 07/11/20 13:22 Consult Cardiology Routine Current Diagnoses Obesity, unspecified (07/11/20) Hyperlipidemia, unspecified (07/11/20) Unspecified atrial fibrillation (07/11/20) Allergies ANTIBIOTIC Allergy (Unknown, Uncoded 07/11/20 07:12) PT NOT SURE NAME OF - RASH bee stings Allergy (Unknown, Uncoded 07/11/20 07:12) TROUBLE BREATHING, SWELLING Height/Weight/Isolation Height 5 ft 10 in Weight 115.938 kg Chemistry 07/11/20 07/12/20 08:27 05:46 Sodium 139 139 Potassium 4.0 3.9 Chloride 106 109 H Carbon Dioxide 28 26 Anion Gap 6.0 4.0 BUN 17 19 H Creatinine 1.12 1.08 Glucose 109 H 102 H Hospital Course (1) Atrial fibrillation with RVR: (2) Hyperlipidemia: (3) Obesity: s/p Cardizem gtt c Bolus, IV Heparin c Bolus, Cardiac on case, continue ASA, DC on Eliquis. DC home on Eliquis today Labs Checked ROS-No Headache, No Visual Changes, No Nausea, No Vomiting, No Fever, No Chills, No Neck Pain or Stiffness, No Chest Pain, No Palpitations, No SOB, No MANCIA, No Cough, No Sputum, No Wheezing, No Abdominal Pain, No Diarrhea, No Hematemesis, No Hemoptysis, No Unexpected Weight Loss, No Flank pain, No Melena, No Hematochezia, No Frequency, No Urgency, No Burning, No Hematuria, No Rashes, No Diaphoresis. Appetite is Normal Physical Exam Gen-AAO x 3, NAD, Afebrile, Obese Head-NCAT, EOMI, PERRLA, Anicteric Sclera, No Posterior Pharyngeal Erythema Neck-Supple, No JVD, No Thyromegaly, No Masses, No LAD, No Bruits Lungs-Clear to Auscultation Bilaterally, No Rales, No Rhonchi, No Wheezing, No Crepitus Chest-Irreg/Irres, Tachy in low teens, No S4, +S1, +S2, No S3, No Murmurs, No Rubs, No Gallops, +Ectopy Abdomen-Soft, Bowel Sounds Present, Non Tender, Non Distended, No Hepatomegaly, No Splenomegaly, No Palpable Masses, No Rebound, No Rigidity, No Guarding Musculoskeletal-Full Range of Motion Bilaterally, No CVAT Extremities-No Cyanosis, No Clubbing, No Edema Nuero-Cranial Nerves II-XII grossly intact, Motor WNL, DTRs WNL, Strength WNL, Non Focal Psych-Normal Mood Total Time Total Time Spent Total Time Spent (In Minutes): 45 mins Total Time Includes: Examination of the Patient, Discharge Planning, Medication Reconciliation and Communication With Other Providers Discharge Plan Discharge Items Patient Disposition: Home - Self-Care Reason For Visit: AFIB RVR Discharge Diagnosis: (1) Atrial fibrillation with RVR: (2) Hyperlipidemia: (3) Obesity: Condition on Discharge: Good Activity: Resume your previous activity Lifting: Gradually increase as tolerated Bathing: No limitations Sexual Activity: When tolerated Exercise/Sports: Gradually increase as tolerated Driving/Machine Use: No limitations Weightbearing: Full weightbearing Non-emergency contact: Primary Care Provider, Manager Inside and Honing Machine Operator Semiautomatic Call non-emergency contact if: you have any medication questions Follow-up/Referrals: Dirk Gan DO [Manager Inside] - (Call for Appt) Munira Deleon MD [Primary Care Provider] - Diet: Heart Healthy Addtl Attending Provider Instructions: Ask Honing Machine Operator Semiautomatic how long he wants you off Eliquis before he fixes your Cataract Pending Studies at Discharge: Yes Studies:: Echo Stand-Alone Forms: [employer] Mobile, Smoking Cessation Medications and DC Order Prescriptions: New metoprolol tartrate 25 mg Tablet 25 mg PO BID Qty: 60 RF: 0 Eliquis 5 mg tablet 5 mg PO BID Qty: 60 RF: 0 Continued aspirin [Aspir-81] 81 mg Tablet,Delayed Release (Dr/Ec) 81 mg PO DAILY RF: 0 Discharge Orders: Discharge Order (Routine); Ordered 07/12/20 Ordered By: Nba Ansari Admission Data Admit Date/Time: 07/11/20 11:54 Attending Provider: Nba Ansari Admit Provider: Nba Ansari Primary Care Provider: Munira Deleon Other Providers: Nba Ansari ; Jn Roberts ; Joaquín Ha ; Shadi Campa ; Dirk Gan ; Marcio Rea ; Miguel Higuera ; Radha Brizuela ; Mohini Sanon ; Chirag Mitchell
[2020-07-12] MEDS ORDERED: APIXABAN 5 MG TABLET PO SCH (11:15)
--- NOTE | 2020-07-12 12:24 | Cardiology Progress Note ---
Date of Service July 12, 2020 Assessment & Plan (1) Atrial fibrillation with RVR: (2) Elevated blood pressure reading with diagnosis of hypertension: (3) Obesity: 69-year-old patient admitted with atrial fibrillation with rapid ventricular response. [id number] score = 1-2 for age and ? HTN. Blood pressure well controlled with evidence of mild concentric left ventricular hypertrophy per echocardiogram. Recommend discontinuation of intravenous heparin. Eliquis 5 mg twice daily ordered. Titrate metoprolol tartrate to 25 mg 3 times daily. Outpatient cardiology follow-up in 1 week. Consider referral for external direct-current cardioversion after 4 weeks of adequate anticoagulation. All questions answered to patient satisfaction. Thank you for allowing me to participate in the care of your patient. Admission and Anticipated Discharge Date Admission Date: July 11, 2020 Subjective Patient seen and examined at the bedside. Feeling well from a cardiovascular perspective. Denies chest pain or palpitations. Heart rate improved overnight. Average heart rate ranging from 72 100 bpm. No lightheadedness, dizziness, syncope, or near syncope. Denies signs/symptoms of GI/ blood loss. Preliminary review of bedside 2D transthoracic echocardiogram demonstrates borderline reduced LV systolic function, no significant valvular pathology. Carrillo don anxious for discharge. Has questions regarding timing of follow-up and cataract surgery. Review of Systems Review of Systems: All systems reviewed & are unremarkable except as noted in Subjective Physical Exam Constitutional: well nourished and + obese; no acute distress Eyes: PERRL, conjunctivae normal, anicteric sclerae Respiratory: normal respiratory effort, lungs clear to auscultation Auscultation: no crackles, no rales, no rhonchi and no wheezes Cardiovascular: Rate/Rhythm: + irregularly irregular Heart Sounds: normal S1 and normal S2; no murmur Vessels: radial pulses present; no JVD and no carotid bruit Extremities: no edema Gastrointestinal (Abdomen): Inspection/Auscultation: normal bowel sounds; abdo men not distended Percussion/Palpation: abdomen soft; abdomen nontender, no guarding and abdomen not rigid Skin: no rashes, warm and dry Psychiatric: A+Ox3, euthymic affect Results & Data ([facility]) Vital Signs (Past 12 Hours) Vital Signs Temp Pulse Pulse Resp BP BP Pulse Ox 07/12/20 11:57 37.0 C 86 18 99/51 L 99 07/12/20 11:19 36.6 C 90 16 115/60 122/80 99 07/12/20 07:49 36.6 C 90 16 115/60 99 07/12/20 07:34 94 H 07/12/20 04:29 36.6 C 85 17 109/72 97
[2020-07-12] MEDS ORDERED: METOPROLOL TARTRATE 25 MG TAB PO SCH (14:00)
--- NOTE | 2020-07-13 06:03 | Electrocardiogram Report ---
Test Reason : Blood Pressure : / mmHG Vent. Rate : 087 BPM Atrial Rate : 115 BPM P-R Int : 000 ms QRS Dur : 094 ms QT Int : 370 ms P-R-T Axes : 000 061 060 degrees QTc Int : 445 ms Atrial fibrillation Nonspecific T wave abnormality Abnormal ECG When compared with ECG of 11-JUL-2020 08:11, No significant change was found Confirmed by Aevl Youssef ([id number]) on 07/13/2020 6:03:13 AM Referred By: Gigi France Confirmed By:Avel Youssef
== END 2020-07-12 15:47 | disposition home or self-care (01) | DRG 310 ==
LOC: ED 08:00 → 2S 11:54